=== PATIENT | male | born 1940 | race African-American/Black ===

== ENCOUNTER → 2017-01-02 | Outpatient (CLI) | payer MEDICARE, BC ==
--- NOTE | 2017-01-02 14:24 | PCVCIMAG ---
APPROVED REPORT Study performed: 01/02/2017 13:23:32 EXAM: Comprehensive 2D, Doppler, and color-flow Echocardiogram Patient Location: Echo lab Status: routine Other Information Study Quality: Adequate Risk Factors: Cardiac Risk Factors: HTN Indications Atrial Fibrillation 2D Dimensions LVEF(%): 38.97 (>50%) IVSd: 15.26 (7-11mm) LVDd: 53.73 mm PWd: 13.26 (7-11mm)Ascending Ao: 38.34 (22-36mm) LVDs: 43.47 (25-40mm) Left Atrium: 44.14 (27-40mm) Aortic Root: 34.61 mm LV Single Plane 4CH: 47.17 % LV Single Plane 2CH: 54.84 %Hurst's LVEF: 51.01 % Biplane EF: 51.4 % Volumes Left Atrial Volume (Systole) Single Plane 4CH: 114.92 mLSingle Plane 2CH: 130.77 mL LA ESV Index: 52.00 mL/m2 Aortic Valve AoV Peak Greg.: 1.87 m/s AO Peak Gr.: 13.99 mmHgLVOT Max P.58 mmHg LVOT Max V: 0.80 m/s AI Vmax: 5.18 m/s AI Kendall: 2.17 m/s2 AI PHT: 691.04 ms Mitral Valve E/A Ratio: 0.8 MV Decel. Time: 257.76 ms MV E Max Greg.: 0.56 m/s MV A Greg.: 0.66 m/s IVRT: 121.11 ms Pulmonary Valve PV Peak Greg.: 0.90 m/sPV Peak Gr.: 3.22 mmHg Pulmonary Vein P Vein S: 0.43 m/sP Vein A: 0.25 m/s P Vein D: 0.51 m/sP Vein A Dur.: 107.3 msec P Vein S/D Ratio: 0.84 Tricuspid Valve TR Peak Greg.: 2.45 m/s TR Peak Gr.: 24.01 mmHg Left Ventricle The left ventricle is normal size. There is normal LV segmental wall motion. Mild to moderate concentric left ventricular hypertrophy. Left ventricular systolic function is normal. The left ventricular ejection fraction is within the normal range. LVEF is 55%. Grade I - abnormal relaxation pattern. Right Ventricle The right ventricle is normal size. The right ventricular systolic function is normal. Atria Left atrium is severely dilated. Right atrium is mildly dilated. Aortic Valve The aortic valve is normal in structure. Mild aortic regurgitation. There is no aortic valvular stenosis. Mitral Valve The mitral valve is normal in structure. Trace mitral regurgitation. No evidence of mitral valve stenosis. Tricuspid Valve The tricuspid valve is normal in structure. Mild tricuspid regurgitation with PAP of 31 mmHg. Pulmonic Valve The pulmonary valve is normal in structure. There is no pulmonic valvular regurgitation. Great Vessels The aortic root is normal in size. IVC is normal in size and collapses with >50% inspiration Pericardium There is no pericardial effusion. <Conclusion> The left ventricle is normal size. Mild to moderate concentric left ventricular hypertrophy. Left ventricular systolic function is normal. The right ventricle is normal size. Left atrium is severely dilated. Right atrium is mildly dilated. Mild aortic regurgitation. Trace mitral regurgitation. Mild tricuspid regurgitation with PAP of 31 mmHg.
== END | disposition home or self-care (01) ==
LOC: PCVCIMAG 13:26
PROVIDERS: ATTEND Internal Medicine Cardiovascular Disease
DX: I08.3 Combined rheumatic disorders of mitral, aortic and tricuspid valves (principal); I48.91 Unspecified atrial fibrillation; I10 Essential (primary) hypertension; E78.00 Pure hypercholesterolemia, unspecified; M19.90 Unspecified osteoarthritis, unspecified site; F17.200 Nicotine dependence, unspecified, uncomplicated; Z95.828 Presence of other vascular implants and grafts; Z88.2 Allergy status to sulfonamides; Z96.653 Presence of artificial knee joint, bilateral
CPT/HCPCS: 93005; 93306; G0463

== ENCOUNTER → 2017-10-30 | Outpatient (CLI) | payer MEDICARE | END | disposition home or self-care (01) | LOC: PCVCCLINIC 13:37 | DX: I48.91 Unspecified atrial fibrillation (principal); I10 Essential (primary) hypertension; E78.00 Pure hypercholesterolemia, unspecified; R60.9 Edema, unspecified; F17.210 Nicotine dependence, cigarettes, uncomplicated; Z88.0 Allergy status to penicillin; Z79.899 Other long term (current) drug therapy | CPT/HCPCS: 93005; G0463 ==

== ENCOUNTER → 2018-06-18 | Outpatient (CLI) | payer MEDICARE | END | disposition home or self-care (01) | LOC: PCVCCLINIC 13:50 | PROVIDERS: ATTEND Internal Medicine Cardiovascular Disease | DX: I48.91 Unspecified atrial fibrillation (principal); I10 Essential (primary) hypertension; E78.00 Pure hypercholesterolemia, unspecified; R60.9 Edema, unspecified; F17.200 Nicotine dependence, unspecified, uncomplicated; Z79.82 Long term (current) use of aspirin | CPT/HCPCS: 93005; G0463 ==